=== PATIENT | male | born 1945 | race Caucasian/White ===

== ENCOUNTER 2018-08-10 01:48 | Emergency (ER) | payer MEDICARE, OTHER ==
[~2018-08-10] VITALS: Ht 170.2 cm; Wt 108.0 kg
--- NOTE | 2018-08-10 02:09 | ED Chest Pain ---
General Stated Complaint: DIZZYNESS Source: patient Exam Limitations: no limitations History of Present Illness Date Seen by Provider: Aug 10, 2018 Time Seen by Provider: 01:47 Initial Comments 72-year-old male presents after having awakened at approximately 10:00 pm, 4 hours ago, with dizziness. He states he had about 10-15 seconds of left-sided chest pain which was present transiently. He states that he drank a couple glasses of wine before dozing off then waking up extremely dizzy. He had no paresthesias or weakness bilaterally. No recent head injury. Denies any tinnitus or hearing loss. No vomiting or diarrhea reported. He believes that this could be related to some bad coleslaw he had eaten just prior to onset of symptoms and subsequently developed one episode of explosive diarrhea just prior to his symptom onset. He is somewhat nauseated but has not had any vomiting. Allergies and Home Medications Allergies Coded Allergies: shrimp (Verified Allergy, Unknown, 08/10/18) Uncoded Allergies: BEE STING (Allergy, Unknown, 08/10/18) Patient Home Medication List Home Medication List Reviewed: Yes Review of Systems Review of Systems Constitutional: no symptoms reported EENTM: No Symptoms Reported Respiratory: No Symptoms Reported Cardiovascular: See HPI Gastrointestinal: No Symptoms Reported Genitourinary: No Symptoms Reported Musculoskeletal: no symptoms reported Skin: no symptoms reported Psychiatric/Neurological: No Symptoms Reported Endocrine: No Symptoms Reported Hematologic/Lymphatic: No Symptoms Reported Past Pdbppts-Nfrtcm-Kvcwva Hx Past Med/Social Hx: Reviewed Nursing Past Med/Soc Hx Patient Social History Recent Foreign Travel: No Contact w/Someone Who Travel: No Physical Exam Vital Signs Vital Signs - First Documented 08/10/18 01:55 Temp 97.2 Pulse 72 Resp 13 B/P (MAP) 129/73 (91) Pulse Ox 97 O2 Delivery Room Air Capillary Refill : Height, Weight, BMI Height: '" Weight: lbs. oz. kg; BMI Method: General Appearance: WD/WN, Anxious, Obese HEENT: PERRL/EOMI, TMs Normal, Normal ENT Inspection, Pharynx Normal Neck: Full Range of Motion, Normal Inspection, Non Tender, Supple Respiratory: Chest Non Tender, Lungs Clear, Normal Breath Sounds, No Accessory Muscle Use, No Respiratory Distress Cardiovascular: Regular Rate, Rhythm, No Edema, No Gallop, No JVD, Systolic Murmur (grade 2/6) Gastrointestinal: Normal Bowel Sounds, No Organomegaly, Non Tender, Soft Extremity: Normal Capillary Refill, Normal Inspection, Normal Range of Motion, Non Tender, No Calf Tenderness Neurologic/Psychiatric: Alert, Oriented x3, No Motor/Sensory Deficits, Normal Mood/Affect, leadership recruiter II-XII Norm as Tested, Other (reflexes 2+/4+ symmetrically) Skin: Normal Color, Warm/Dry Lymphatic: No Adenopathy Progress/Results/Core Measures Results/Orders Lab Results Laboratory Tests Test 08/10/18 02:09 Range/Units White Blood Count 8.3 4.3-11.0 10^3/uL Red Blood Count 5.05 4.35-5.85 10^6/uL Hemoglobin 15.4 13.3-17.7 G/DL Hematocrit 46 40-54 % Mean Corpuscular Volume 92 80-99 FL Mean Corpuscular Hemoglobin 30 25-34 PG Mean Corpuscular Hemoglobin Concent 33 32-36 G/DL Red Cell Distribution Width 13.7 10.0-14.5 % Platelet Count 208 130-400 10^3/uL Mean Platelet Volume 10.1 7.4-10.4 FL Neutrophils (%) (Auto) 62 42-75 % Lymphocytes (%) (Auto) 29 12-44 % Monocytes (%) (Auto) 7 0-12 % Eosinophils (%) (Auto) 2 0-10 % Basophils (%) (Auto) 1 0-10 % Neutrophils # (Auto) 5.1 1.8-7.8 X 10^3 Lymphocytes # (Auto) 2.4 1.0-4.0 X 10^3 Monocytes # (Auto) 0.6 0.0-1.0 X 10^3 Eosinophils # (Auto) 0.1 0.0-0.3 10^3/uL Basophils # (Auto) 0.0 0.0-0.1 10^3/uL Prothrombin Time 13.1 12.2-14.7 SEC INR Comment 1.0 0.8-1.4 Activated Partial Thromboplast Time 26 24-35 SEC Sodium Level 140 135-145 MMOL/L Potassium Level 3.7 3.6-5.0 MMOL/L Chloride Level 98 98-107 MMOL/L Carbon Dioxide Level 28 21-32 MMOL/L Anion Gap 14 5-14 MMOL/L Blood Urea Nitrogen 19 H 7-18 MG/DL Creatinine 1.03 0.60-1.30 MG/DL Estimat Glomerular Filtration Rate > 60 BUN/Creatinine Ratio 18 Glucose Level 147 H 70-105 MG/DL Calcium Level 9.3 8.5-10.1 MG/DL Corrected Calcium 9.2 8.5-10.1 MG/DL Magnesium Level 1.8 1.8-2.4 MG/DL Total Bilirubin 0.4 0.1-1.0 MG/DL Aspartate Amino Transf (AST/SGOT) 21 5-34 U/L Alanine Aminotransferase (ALT/SGPT) 37 0-55 U/L Alkaline Phosphatase 39 L 40-136 U/L Troponin T 8 <=15 NG/L Total Protein 7.1 6.4-8.2 GM/DL Albumin 4.1 3.2-4.5 GM/DL Lipase 18 8-78 U/L Serum Alcohol 89 H <10 MG/DL My Orders Orders - ROBERTO RAMIREZ MD Cbc With Automated Diff (08/10/18 02:04) Magnesium (08/10/18 02:04) Chest 1 View Ap/Pa Only (08/10/18 02:04) Ekg Tracing (08/10/18 02:04) Comprehensive Metabolic Panel (08/10/18 02:04) Protime With Inr (08/10/18 02:04) Partial Thromboplastin Time (08/10/18 02:04) O2 (08/10/18 02:04) Monitor-Rhythm Ecg Trace Only (08/10/18 02:04) Lipid Panel (08/11/18 06:00) Saline Lock/Iv-Start (08/10/18 02:04) Lipase (08/10/18 02:04) Alcohol (08/10/18 02:04) Troponin T (08/10/18 02:04) Ct Head Wo (08/10/18 02:04) Aspirin Chewable Tablet (Baby Aspirin Ch (08/10/18 02:15) Ondansetron Injection (Zofran Injectio (08/10/18 02:45) Medications Given in ED Current Medications Medications Dose Ordered Sig/Steffany Route Start Time Stop Time Status Last Admin Dose Admin Aspirin 324 mg ONCE ONCE PO 08/10/18 02:15 08/10/18 02:16 UNV 08/10/18 02:34 324 MG Ondansetron HCl 4 mg ONCE ONCE IVP 08/10/18 02:45 08/10/18 02:46 UNV 08/10/18 02:47 4 MG Vital Signs/I&O 08/10/18 01:55 Temp 97.2 Pulse 72 Resp 13 B/P (MAP) 129/73 (91) Pulse Ox 97 O2 Delivery Room Air Progress Progress Note : Time: 02:12 Progress Note Dizziness and chest discomfort had abated just prior to arrival by EMS. Neurologic exam is unremarkable. He is alert and oriented. His EKG does not demonstrate any acute changes. Will do cardiac workup as well as CT 8 scan of his head. He'll be closely monitored and further evaluation and care given as needed. 0310 dizziness and nausea markedly improved after Zofran. He is convinced this is due to the 4-day-old coleslaw that he ate just prior to the onset of the symptoms. He states that he has had similar symptoms due to food poisoning in the past. We discussed his clinical findings and symptoms. I recommended admission to the hospital for observation however he is emphatic that he can go home. We set him up and stood him up without any symptoms at all. He remains neurologically intact. He understands and accepts the risk of discharge. He agrees to follow up with his PCP as soon as possible. Initial ECG Impression Date: Aug 10, 2018 Initial ECG Impression Time: 01:52 Initial ECG Rhythm: Normal Sinus Initial ECG Intervals: Normal Initial ECG Comparisson: No Previous ECG Available Comment RBBB, no acute changes Diagnostic Imaging Diagonstic Imaging: Xray, CT Plain Films/CT/US/NM/MRI: chest, head Comments CT head: Mild microvascular white matter disease. No acute findings. Dr. Silveira. CXR: No acute changes. JDO CP/AMI: Aspirin Departure Communication (Admissions) Family Conversation Discussed my recommendation for admitting. Both the patient and his prefer to be discharged and follow up with her PCP. They understand accept the risk associated with this. They also understand that they can return at any time should they change their mind. Impression Primary Impression: Vertigo Additional Impressions: Food poisoning Qualified Codes: T62.91XA - Toxic effect of unspecified noxious substance eaten as food, accidental (unintentional), initial encounter Heart murmur Alcohol intoxication Qualified Codes: F10.920 - Alcohol use, unspecified with intoxication, uncomplicated Disposition: 01 HOME, SELF-CARE Condition: Improved Departure-Patient Inst. Decision time for Depature: 03:15 Referrals: SELF,GIBSON LOPEZ Primary Care Physician 1-2 days Patient Instructions: Food Poisoning, Food Poisoning (DC), Heart Murmurs Scripts Meclizine HCl (Meclizine HCl) 25 Mg Tablet 25 MG PO TID PRN for DIZZINESS, #14 TAB Prov: ROBERTO RAMIREZ MD 08/10/18 ROBERTO RAMIREZ MD Aug 10, 2018 02:09
[2018-08-10] MEDS ORDERED: ASPIRIN 81 MG CHEW (CHILDREN'S ASA) PO ONE (02:15)
[2018-08-10] MEDS ORDERED: ASPIRIN 81 MG CHEW (CHILDREN'S ASA) ONE (02:31)
[2018-08-10 02:32] LABS: BASOPHILS % (AUTO) 1 % (0-10); EOSINOPHILS % (AUTO) 2 % (0-10); HEMATOCRIT 46 % (40-54); HEMOGLOBIN 15.4 G/DL (13.3-17.7); LYMPHOCYTES % (AUTO) 29 % (12-44); MEAN CORPUSCULAR HEMOGLOBIN 30 PG (25-34); MEAN CORPUSCULAR HGB CONC 33 G/DL (32-36); MEAN CORPUSCULAR VOLUME 92 FL (80-99); MEAN PLATELET VOLUME 10.1 FL (7.4-10.4); MONOCYTES % (AUTO) 7 % (0-12); NEUTROPHILS % (AUTO) 62 % (42-75); PLATELET COUNT 208 10^3/uL (130-400); RED CELL DISTRIBUTION WIDTH 13.7 % (10.0-14.5); WHITE BLOOD COUNT 8.3 10^3/uL (4.3-11.0)
[2018-08-10 02:33] LABS: EOSINOPHILS # (AUTO) 0.1 10^3/uL (0.0-0.3); LYMPHOCYTES # (AUTO) 2.4 X 10^3 (1.0-4.0); MONOCYTES # (AUTO) 0.6 X 10^3 (0.0-1.0); NEUTROPHILS # (AUTO) 5.1 X 10^3 (1.8-7.8)
[2018-08-10 02:44] LABS: PROTHROMBIN TIME PATIENT 13.1 SEC (12.2-14.7)
[2018-08-10] MEDS ORDERED: ONDANSETRON 4 MG/2 ML (SDV) Z0FRAN ONE (02:44)
[2018-08-10] MEDS ORDERED: ONDANSETRON 4 MG/2 ML (SDV) Z0FRAN IVP ONE (02:45)
[2018-08-10 02:53] LABS: CARBON DIOXIDE 28 MMOL/L (21-32); CHLORIDE 98 MMOL/L (98-107); POTASSIUM 3.7 MMOL/L (3.6-5.0); SODIUM 140 MMOL/L (135-145)
[2018-08-10 02:54] LABS: ALANINE AMINOTRANSFERASE 37 U/L (0-55); ALBUMIN 4.1 GM/DL (3.2-4.5); ALKALINE PHOSPHATASE 39 U/L (40-136); BILIRUBIN,TOTAL 0.4 MG/DL (0.1-1.0); BUN/CREATININE RATIO 18; CALCIUM 9.3 MG/DL (8.5-10.1); CREATININE SERUM 1.03 MG/DL (0.60-1.30); GFR ESTIMATED > 60; GLUCOSE 147 MG/DL (70-105); LIPASE 18 U/L (8-78); MAGNESIUM 1.8 MG/DL (1.8-2.4)
[2018-08-10 02:55] LABS: TOTAL PROTEIN 7.1 GM/DL (6.4-8.2)
[2018-08-10] MEDS ORDERED: MECL-106 PO (03:17)
[2018-08-10] MEDS ORDERED: RX-MECLIZINE HCL (ANTIVERT) 25 MG TAB #4 PPK PO ONE ×2 (03:19→03:30)
[2018-08-10 03:30] VITALS: BP 138/70
--- NOTE | 2018-08-10 06:18 | Diagnostic Imaging Report ---
PROCEDURE: CT head without contrast. TECHNIQUE: Multiple contiguous axial images were obtained through the brain without the use of intravenous contrast. Auto Exposure Controls were utilized during the CT exam to meet ALARA standards for radiation dose reduction. INDICATION: Severe dizziness starting earlier in the night. COMPARISON: None FINDINGS: There is mild diffuse atrophic changes with prominence of the ventricles and sulci. There are scattered areas of decreased attenuation, nonspecific but likely changes of chronic small vessel ischemic disease. There is otherwise normal pina-white differentiation. No abnormal areas of attenuation to suggest edema from ischemia. There is no midline shift or mass effect. No evidence for acute intracranial hemorrhage or abnormal extra-axial fluid collection. Bony calvarium is intact. Paranasal sinuses are clear. Mastoid air cells also appear clear. IMPRESSION: 1. No CT evidence for acute intracranial abnormality. Given symptoms, if further assessment is desired, MRI may be additional benefit. A preliminary report was provided by Pat. Dictated by: Dictated on workstation # [id number]
--- NOTE | 2018-08-10 06:21 | Diagnostic Imaging Report ---
INDICATION: Shortness of breath, dizziness. FINDINGS: Heart size is within normal limits. The lungs are clear. There is no effusion, pneumothorax or failure pattern. IMPRESSION: No acute appearing abnormality. Dictated by: Dictated on workstation # [id number]
== END 2018-08-10 03:30 | disposition home or self-care (01) ==
LOC: EDUNIT# 01:48 → ER FS 01:51
DX: T62.91XA Toxic effect of unspecified noxious substance eaten as food, accidental (unintentional), initial encounter (principal); F10.129 Alcohol abuse with intoxication, unspecified; R01.1 Cardiac murmur, unspecified; R42 Dizziness and giddiness
CPT/HCPCS: 36415; 70450; 71045; 80053; 80320; 83690; 83735; 84484; 85025; 85610; 85730; 93005; 93041; 96374

== ENCOUNTER → 2018-09-28 | Outpatient (CLI) | payer MEDICARE, OTHER ==
[~2018-09-28] MED LIST: CATHETER FLUSH 10 ML SYR IV PRN; HOLD METFORMIN - RECEIVED CONTRAST 20 ML VIAL IV SCH; IOHEXOL 350 MG/ML 100 ML (OMNIPAQUE 350) VIAL IV ONE; MECL-106 PO; NS 100 ML (IVPB) BAG IV ONE
[2018-09-28 09:50] LABS: BUN/CREATININE RATIO 27; CARBON DIOXIDE 30 MMOL/L (21-32); CHLORIDE 99 MMOL/L (98-107); GFR ESTIMATED > 60; POTASSIUM 4.3 MMOL/L (3.6-5.0); SODIUM 142 MMOL/L (135-145)
[2018-09-28 09:51] LABS: CALCIUM 9.3 MG/DL (8.5-10.1); GLUCOSE 131 MG/DL (70-105)
--- NOTE | 2018-09-28 12:01 | Diagnostic Imaging Report ---
INDICATION: Carotid arterial disease. TECHNIQUE: Axial imaging through the neck was performed after the administration of intravenous contrast and utilizing the CT angiography protocol. Multiplanar, 3-D, and MIP reformations were also performed. COMPARISON: No prior studies are available for comparison. FINDINGS: There is a three-vessel branching pattern to the aortic arch. Both common carotid arteries appear to be widely patent. Internal carotid arteries are poorly evaluated due to lack of optimal opacification of the internal carotid arterial system. This may be a timing issue, as there is dense contrast within the venous system. There is some calcified plaque at the carotid bifurcations bilaterally. No identifiable flow is identified in the proximal left internal carotid artery which contains heavy calcified plaque. The features are suspicious for internal carotid artery occlusion on the left side. The vertebral arteries demonstrate left vertebral artery to be dominant. Suboptimal opacification of the vertebral artery system is also noted. Basilar artery is patent. Limited intracranial images demonstrate flow within the bilateral middle cerebral and anterior cerebral as well as posterior cerebral arteries. IMPRESSION: Suboptimal study due to suboptimal opacification of the intra-or internal carotid arterial system. 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 Confirmation with ultrasound Doppler would be useful. The right internal carotid artery is limited in evaluation but no significant abnormality is seen. Dictated by: Dictated on workstation # [id number]
== END ==
LOC: LAB FS 09:12
PROVIDERS: ATTEND Nurse Practitioner Family
DX: I65.22 Occlusion and stenosis of left carotid artery (principal)
CPT/HCPCS: 36415; 70498; 80048

== ENCOUNTER → 2018-10-06 | Outpatient (CLI) | payer MEDICARE, OTHER ==
[~2018-10-06] VITALS: Ht 170.2 cm; Wt 110.7 kg
[~2018-10-06] MED LIST changes: -HOLD METFORMIN - RECEIVED CONTRAST 20 ML VIAL IV SCH; -IOHEXOL 350 MG/ML 100 ML (OMNIPAQUE 350) VIAL IV ONE; -NS 100 ML (IVPB) BAG IV ONE; +REGADENOSON 0.4 MG/5 ML SYR (LEXISCAN) IV ONE
--- NOTE | 2018-10-06 19:07 | STRESS TEST ---
DATE OF SERVICE: 10/06/2018 RESTING AND POST REGADENOSON TECHNETIUM-99M TETROFOSMIN SPECT CT IMAGING ORDERING PHYSICIAN: Dr. Francois. PRIMARY PHYSICIAN: Dr. Mantilla. CLINICAL DIAGNOSIS: Coronary artery disease. Baseline images were carried out after injection of 10.64 mCi of technetium-99m Tetrofosmin. This was followed by 0.4 mg of regadenoson and 30.9 mCi of technetium-99m Tetrofosmin for stress imaging. The electrocardiogram showed sinus rhythm with incomplete right bundle branch block. The electrocardiogram did not change significantly with the regadenoson infusion. There was nonspecific ST and T-wave abnormality, which did not change. The patient tolerated the procedure well. Review of images at rest and following stress does not indicate any distinct perfusion defects consistent with significant myocardial ischemia or infarction. Gated images show normal global left ventricular systolic function with normal regional wall motion. Left ventricular ejection fraction is calculated to be 62%. Left ventricular end diastolic volume is 64 mL. TID is absent (1.02). CONCLUSIONS: 1. No evidence of any significant myocardial ischemia or infarction on this study. 2. Normal regional wall motion. 3. Normal global left ventricular systolic function with a calculated ejection fraction of 62%. Job ID: [id number] DocumentID: [id number] Dictated Date: 10/06/2018 17:27:58 Converting Supervisor Date: 10/06/2018 19:06:19 Dictated By: ALEX FRANCOIS MD, MA, FACP, FACC,
== END ==
LOC: CARD 07:22
PROVIDERS: ATTEND Internal Medicine Cardiovascular Disease
DX: I25.10 Atherosclerotic heart disease of native coronary artery without angina pectoris (principal); R73.01 Impaired fasting glucose; I10 Essential (primary) hypertension; E78.5 Hyperlipidemia, unspecified; G47.33 Obstructive sleep apnea (adult) (pediatric); I45.10 Unspecified right bundle-branch block
CPT/HCPCS: 78452; 93017; 93306

== ENCOUNTER → 2021-05-14 | Outpatient (CLI) | payer MEDICARE, OTHER ==
[~2021-05-14] MED LIST changes: -CATHETER FLUSH 10 ML SYR IV PRN; -MECL-106 PO; +MECL-149 PO; -REGADENOSON 0.4 MG/5 ML SYR (LEXISCAN) IV ONE
--- NOTE | 2021-05-14 14:53 | Diagnostic Imaging Report ---
PROCEDURE: MRI lumbar spine. TECHNIQUE: Multiplanar, multisequence MRI of the lumbar spine was performed without contrast. DATE: May 14, 2021. COMPARISON: None. INDICATION: 75-year-old male, chronic low back pain. FINDINGS: There is grade 1 anterolisthesis of L4 on L5 measuring 4 mm. There is no evidence of a diffuse marrow infiltrating or replacing process. There is no identified compression deformity or fracture. The visualized cord and conus medullaris is unremarkable and terminates at the L1-L2 level. There is mild disc height loss at T12-L1 and L1-L2. There is severe disc height loss at L4-L5. There are multilevel Modic endplate degenerative related changes of the thoracolumbar spine. There is no identified focal concerning bone lesion. There is no visualized pars interarticularis defect. L1-L2: There is mild diffuse disc bulge. The facet joints and ligamentum flavum are unremarkable. There is mild right foraminal narrowing. There is prominence of the posterior epidural fat. There is no spinal canal stenosis. L2-L3: There is no disc bulge. The facet joints and ligamentum flavum are unremarkable. There is no foraminal narrowing. There is no spinal canal stenosis. L3-L4: There is no disc bulge. The facet joints and ligamentum flavum are unremarkable. There is no foraminal narrowing. There is no spinal canal stenosis. L4-L5: There is uncovering of the disc relating to the anterolisthesis as well as diffuse disc bulge. There is moderate to severe narrowing of the right lateral recess and moderate narrowing of the left lateral recess. There are bilateral facet degenerative changes without ligamentum flavum hypertrophy. There is severe right and moderate to severe left foraminal narrowing. There is no spinal canal stenosis. L5-S1: There is mild diffuse disc bulge. There are bilateral facet degenerative changes without ligamentum flavum hypertrophy. There is mild right foraminal narrowing. There is no spinal canal stenosis. IMPRESSION: 1. Multilevel disc and facet degenerative changes of the lumbar spine most notable at L4-L5. 2. Grade 1 anterolisthesis of L4 on L5 relating to facet arthropathy. 3. No identified compression deformity or fracture. Dictated by: Dictated on workstation # [id number]
== END ==
LOC: RAD 13:15
PROVIDERS: ATTEND Family Medicine
DX: M47.26 Other spondylosis with radiculopathy, lumbar region (principal); M51.16 Intervertebral disc disorders with radiculopathy, lumbar region; M43.16 Spondylolisthesis, lumbar region
CPT/HCPCS: 72148

== ENCOUNTER → 2021-06-12 | Outpatient (CLI) | payer MEDICARE, OTHER ==
[~2021-06-12] MED LIST changes: +REGADENOSON 0.4 MG/5 ML SYR (LEXISCAN) IV ONE
[2021-06-12] MEDS: CATHETER FLUSH 10 ML SYR IV PRN ×2 (11:25→13:03)
[2021-06-12 12:51] VITALS: BP 181/88
--- NOTE | 2021-06-14 13:24 | STRESS TEST ---
DATE OF SERVICE: 06/12/2021 RESTING AND POST REGADENOSON TECHNETIUM-99M TETROFOSMIN SPECT CT IMAGING Baseline images were carried out after injection of 10.17 mCi of technetium-99m Tetrofosmin. This was followed by 0.4 mg regadenoson and 30.7 mCi of technetium-99m Tetrofosmin for stress imaging. The electrocardiogram showed sinus rhythm with right bundle branch block at baseline. It did not change significantly with the regadenoson infusion. The patient tolerated the procedure well. Review of images at rest and following stress indicates an inferoseptal perfusion defect, which appears transient. Gated images show normal global left ventricular systolic function with normal regional wall motion. Left ventricular ejection fraction is calculated to be 74%. Left ventricular end-diastolic volume is 43 mL. TID is absent (1.06%) SDS is 5. CONCLUSIONS: 1. This study is indicative of a moderate amount of inferoseptal ischemia. 2. Normal regional wall motion. 3. Normal global left ventricular systolic function with an ejection fraction 76%. Job ID: [id number] DocumentID: [id number] Dictated Date: 06/14/2021 12:04:25 Radiology Manager Date: 06/14/2021 13:22:46 Dictated By: ALEX SANON MD, MA, FACP, FACC,
== END ==
LOC: CARD 11:30
PROVIDERS: ATTEND Internal Medicine Cardiovascular Disease
DX: I25.10 Atherosclerotic heart disease of native coronary artery without angina pectoris (principal)
CPT/HCPCS: 78452; 93017; A9502

== ENCOUNTER 2021-06-19 11:00 | Day surgery (SDC) | payer MEDICARE, OTHER ==
[2021-06-19] VITALS (9 sets, daily range): BP systolic 109–190; BP diastolic 56–102
[~2021-06-19] VITALS: Ht 170 cm; Wt 106.0 kg
[2021-06-19 09:54] LABS: HEMATOCRIT 50 % (40-54); HEMOGLOBIN 17.1 g/dL (13.3-17.7); MEAN CORPUSCULAR HEMOGLOBIN 30 pg (25-34); MEAN CORPUSCULAR HGB CONC 34 g/dL (32-36); MEAN CORPUSCULAR VOLUME 89 fL (80-99); MEAN PLATELET VOLUME 9.6 fL (9.0-12.2); PLATELET COUNT 256 10^3/uL (130-400)
[2021-06-19 10:03] LABS: ALBUMIN 4.4 GM/DL (3.2-4.5); POTASSIUM 3.6 MMOL/L (3.6-5.0)
[2021-06-19 10:04] LABS: CALCIUM 9.7 MG/DL (8.5-10.1)
[2021-06-19 10:05] LABS: TOTAL PROTEIN 7.9 GM/DL (6.4-8.2)
[2021-06-19 10:09] LABS: CREATININE SERUM 0.91 MG/DL (0.60-1.30)
[2021-06-19 10:11] LABS: PROTHROMBIN TIME PATIENT 13.4 SEC (12.2-14.7)
[~2021-06-19 11:00] MED LIST changes: +AGELESS MALE PO; +ASPI-1238 PO; +ATEN50TA PO; +CA C1TAB78 PO; +CHOL-34 PO; +CYAN-41 PO; +HEParin (CATH LAB) 2,000 ML IV ONE; +HYDR25TA4 PO; +LIDOCAINE 1% INJ 20 ML VIAL ONE; +LOSA100T57 PO; +MIDAZOLAM 5 MG/5 ML (VERSED) VIAL ONE; +MV,M1TAB4 PO; +NS IV 1000 ML 1,000 ML IV SCH; +NS IV 1000 ML 1,000 ML ONE; +OMEG-160 PO; +OMEP20TA7 PO; -REGADENOSON 0.4 MG/5 ML SYR (LEXISCAN) IV ONE; +SAW/1TAB2 PO; +diphenhydrAMINE 50 MG/ML INJ (BENADRYL) ONE; +fentaNYL INJ 100 MCG/2 ML AMP ONE
--- NOTE | 2021-06-19 11:17 | Cardiac Procedure Note-CS/ASA ---
Pre-Procedure Note Pre-Op Procedure Note H&P Reviewed The H&P was reviewed, patient examined and no changes noted. Date H&P Reviewed: Jun 19, 2021 Time H&P Reviewed: 11:17 Conscious Sedation Pre-Proced Time 11:17 ASA Score 3 For ASA 3 and 4: Consider anesthesia and medical clearance. Also, for patients with a history of failed moderate sedation consider anesthesia. Airway Lungs Heart ASA score ASA 1: a normal healthy patient ASA 2: a patient with a mild systemic disease (mid diabetes, controlled hypertension, obesity ASA 3: a patient with a severe systemic disease that limits activity (angina, COPD, prior Myocardial infarction) ASA 4: a patient with an incapacitating disease that is a constant threat to life (CHF, renal failure) ASA 5: a moribund patient not expected to survive 24 hrs. (ruptured aneurysm) ASA 6: a declared brain- patient whose organs are being harvested. For emergent operations, add the letter E after the classification Mallampati Classification Grade 2 Sedation Plan Analgesia, Amnesia, Plan communicated to team members, Discussed options with patient/fam, Discussed risks with patient/fam The patient is an appropriate candidate to undergo the planned procedure, sedation, and anesthesia. The patient immediately re-assessed prior to indication. ALEX SANON MD FACP FAC CCDS Jun 19, 2021 11:17
[2021-06-19] MEDS ORDERED: HEParin 1000 UNIT/ML (10ML VIAL) FOR BOLUS ONE (13:15)
[2021-06-19] MEDS ORDERED: EPTIFIBATIDE BOLUS 20 ML IV ONE (13:15)
[2021-06-19] MEDS ORDERED: NITRO DRIP 25000 MCG/D5W 0 ML IV ONE (13:18)
[2021-06-19] MEDS ORDERED: CLOPIDOGREL 300 MG (PLAVIX) TABLET PO ONE (13:38)
[2021-06-19] MEDS ORDERED: ASPIRIN 81 MG CHEW (CHILDREN'S ASA) ONE (13:38)
[2021-06-19] MEDS ORDERED: PATIENT MAY USE OWN MEDS, ALL PO SCH (13:45)
[2021-06-19] MEDS ORDERED: NS IV 1000 ML 1,000 ML IV SCH (13:45)
[2021-06-19] MEDS ORDERED: ACETAMINOPHEN 325 MG TABLET PO PRN (13:45)
[2021-06-19] MEDS ORDERED: NS IV 1000 ML 1,000 ML ONE (13:53)
--- NOTE | 2021-06-19 14:38 | CARDIAC CATHETERIZATION ---
DATE OF SERVICE: 06/19/2021 CARDIAC CATHETERIZATION AND CORONARY INTERVENTION REPORT INDICATION FOR PROCEDURE: The patient is a 75-year-old gentleman with a history of coronary artery disease, who had a myocardial perfusion imaging study done recently, which showed considerable inferoseptal ischemia. Cardiac catheterization was recommended. Informed consent was obtained for cardiac catheterization and possible ad hoc coronary intervention. DESCRIPTION OF PROCEDURE: He was brought to the cardiac catheterization laboratory in a fasting state. Right groin was prepared and draped in the usual sterile fashion. Lidocaine 1% was used for local anesthesia. Modified Seldinger technique was used to advance a 5-Swiss sheath in the right femoral artery, 5-Swiss JL4 catheter was used for left coronary angiography, 5-Swiss JR4 catheter was used for right coronary angiography, 5-Swiss pigtail catheter was used for left heart catheterization and left ventricular angiography. Subsequently, percutaneous intervention was carried out to the right coronary artery and it is described below. PERCUTANEOUS INTERVENTION TO THE RIGHT CORONARY: We exchanged the sheath over a wire for a 6-Swiss sheath. We used a 6-Swiss JR4 guide catheter with side holes to engage the right coronary artery. We advanced a BMW wire across the lesion in the mid right coronary artery and placed in the distal vessel. We advanced a Xience Cecilia 2.5 x 12 mm stent to the lesion. It was deployed at 16 atmospheres achieving a final stent lumen size of approximately 2.8 mm. The patient tolerated the procedure well. This stenting reduced the stenosis to 0% residual and flow throughout the vessel was normal. Angioplasty equipment was removed. Angiography of the right femoral artery was carried out through the sheath. Mynx was used to achieve hemostasis. HEMODYNAMICS: Left ventricular end-diastolic pressure following coronary angiography was 18 mmHg. There is no significant pressure gradient on pullback across the aortic valve. CORONARY ANGIOGRAPHY: Diffuse coronary calcification is seen. Left main coronary artery does not exhibit significant obstructive disease. Left anterior descending artery has diffuse moderate disease. There is approximately 60% mid vessel stenosis and another 60% distal stenosis. The left circumflex artery has diffuse mild to moderate disease. The right coronary artery is dominant and had 75% mid vessel stenosis. The whole vessel has diffuse mild to moderate plaque as well. Because there was ischemia in the territory of the right coronary artery and because there was a 75% stenosis in the mid right coronary artery, we stented the lesion with Xience Cecilia 2.5 x 12 mm stent that reduced the stenosis to 0% residual. CONCLUSIONS: 1. Coronary artery disease includes 60% stenosis in the mid and distal left anterior descending and 75% stenosis in the mid right coronary. The mid right coronary artery was the culprit lesion (inferoseptal ischemia on myocardial perfusion imaging). This lesion was stented with Xience Cecilia 2.5 x 12 mm stent. The rest of the coronary vessels have diffuse mild to moderate disease. 2. Normal global left ventricular systolic function with an ejection fraction approximately 60%. 3. Elevated left ventricular end-diastolic pressure. DISCUSSION AND RECOMMENDATIONS: Dual antiplatelet therapy has been initiated. Beta anthony and statin therapy will be given as tolerated. Risk factor modification has been reviewed. Job ID: [id number] DocumentID: [id number] Dictated Date: 06/19/2021 13:43:49 Tile And Marble Setter Date: 06/19/2021 14:37:19 Dictated By: ALEX SANON MD, MA, FACP, FACC,
[2021-06-19] MEDS ORDERED: [UNRECOGNIZED DRUG - OTHER] PO SCH (21:00)
[2021-06-19] MEDS ORDERED: VITAMIN D3 25 MCG (1,000 UNITS) TABLET PO SCH (21:00)
[2021-06-19] MEDS ORDERED: NON-FORMULARY MEDICATION 1 EA EA (Omega-3/Dha/Epa/Fish Oil (Fish Oil 1,000 mg Softgel) 1 E PO SCH (21:00)
[2021-06-19] MEDS ORDERED: GINKGO PO SCH (21:00)
[2021-06-19] MEDS ORDERED: CYANOCOBALAMIN 1,000 MCG (VITAMIN B-12) TABLET PO SCH (21:00)
[2021-06-19] MEDS ORDERED: LYCOPENE PO SCH (21:00)
[2021-06-19] MEDS ORDERED: MV MINERALS PO SCH (21:00)
[2021-06-19] MEDS ORDERED: OMEGA 3 (FISH OIL) 1000 MG CAP PO SCH (21:00)
[2021-06-20 08:00] VITALS: BP 158/79
--- NOTE | 2021-06-20 08:04 | Progress Note - Cardiology ---
Cardiology SOAP Progress Note Subjective: Lying in bed No c/o CP, SOB, palpitations, syncope or near syncope No c/o right groin discomfort Objective: I&O/Vital Signs Weight (Pounds): 244 Weight (Ounces): 0.0 Weight (Calculated Kilograms): 110.893188 Side: right Groin site without hematoma: Yes Condition: DP/PT pulses palpable, extremity w/d/p Bruising: mild bruising Constitutional: AAO x 3 Respiratory: chest expansion is symmetric, chest is bilaterally symmetric, lungs clear to auscultation Cardiovascular: regular rate-rhythm; No JVD; S1 and S2 Gastrointestional: No tender; soft, round, audible bowel sounds Extremities: no lower extremity edema bilateral Neurologic/Psychiatric: grossly intact (moves all extremities) Skin: No rash on exposed areas, No ulcerations on exposed areas Results/Procedures: Labs Microbiology 06/19/21 MRSA Screen - Final, Complete MRSA not isolated Procedures S/P cardiac cath. Please refer to Dr. Francois's cardiac cath report of 06-19-21 for details. A/P: Assessment: CAD - Cardiac cath of 06-19-21: Coronary artery disease includes 60% stenosis in the mid and distal left anterior descending and 75% stenosis in the mid right coronary. The mid right coronary artery was the culprit lesion (inferoseptal ischemia on myocardial perfusion imaging). This lesion was stented with Xience Cecilia 2.5 x 12 mm stent. The rest of the coronary vessels have diffuse mild to moderate disease. Normal global left ventricular systolic function with an ejection fraction approximately 60%. Elevated left ventricular end-diastolic pressure - Echocardiogram of September 2018 showed concentric LVH. LVEF 60-65%. Grade 1 diastolic dysfunction. Mid Ao regug. RVSP approx 20 mmHg. Mild TR. Carotid dz - Carotid u/s of September 2018 and Mar 2019 showed L ICA occlusion. Mild carotid dz on the right. 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 - Carotid w/s of 05/31/21: L ICA occlusion, less than 40% R ICA stenosis IFG vs borderline DM II Hyperlipidemia - Reported intolerant to statins (feel that caused hyperglycemia/DM II and also cause him to have marked fatigue) - currently taking Repatha - followed by his PCP, Dr. Self Obesity - BMI 40 Obesity-hypoventilation/RACHEL - Intolerant to CPAP Abnormal ECG. - ECG of 08/10/18 showed NSR with RBBB H/O tobaccoism - Quit smoking in or around 1974 Fam h/o early CAD: - brother had [place] at age 50 Plan: S/P cardiac cath with successful coronary intervention Ok to discharge home today Continue DAPT, BB Out pt f/u in 2 weeks JUDITH CAMPUZANO Jun 20, 2021 08:04
[2021-06-20] MEDS ORDERED: ASPI81TA64 PO (08:06)
[2021-06-20] MEDS ORDERED: CLOP75TA28 PO (08:06)
[2021-06-20] MEDS ORDERED: PANT20TA18 PO (08:06)
--- NOTE | 2021-06-20 08:07 | Discharge Inst-Cardiology ---
Discharge Inst-Cardiac Discharge Medications New Medications: Aspirin (Children's Aspirin) 81 Mg Tab.chew 81 MG PO DAILY, #90 TAB 3 Refills Clopidogrel Bisulfate (Clopidogrel) 75 Mg Tablet 75 MG PO DAILY, #90 TAB 3 Refills Pantoprazole Sodium (Pantoprazole Sodium) 20 Mg Tablet.dr 20 MG PO DAILY, #90 TAB 3 Refills Continued Medications: [Ageless Male] () 1 EACH PO HS Atenolol (Atenolol) 50 Mg Tablet 50 MG PO DAILY, TAB Ca Carb & Gluc/Mag Ox & Gluc (Calcium Magnesium Caplet) 1 Each Tablet 1 EACH PO HS, TAB Cholecalciferol (Vitamin D3) (Vitamin D3) 25 Mcg Tablet 25 MCG PO HS, TAB Cyanocobalamin (Vitamin B-12) (Vitamin B-12) 1,000 Mcg Tablet 1000 MCG PO HS, TAB Hydrochlorothiazide (Hydrochlorothiazide) 25 Mg Tablet 25 MG PO DAILY, TAB Losartan Potassium (Losartan Potassium) 100 Mg Tablet 100 MG PO DAILY, TAB Mv,Minerals/FA/Lycopene/Ginkgo (One Daily Men's 50+ Tablet) 1 Each Tablet 1 EACH PO HS, TAB [place]-3/Dha/Epa/Fish Oil (Fish Oil 1,000 mg Softgel) 1 Each Capsule 1 EACH PO HS, CAP Saw/Vit E/Sod Nohemi/Lyc/Beta/Pyg (Prostate Health Caplet) 1 Each Tablet 1 EACH PO HS, TAB Discontinued Medications: Aspirin (Aspirin EC) 81 Mg Tablet. 81 MG PO DAILY, TAB Omeprazole (Omeprazole) 20 Mg Tablet. 20 MG PO DAILY, TAB New, Converted or Re-Newed RX: Transmitted to Pharmacy Patient Instructions Patient Instructions: Please schedule follow up appointment to see Dr Francois in 2 weeks JUDITH CAMPUZANO Jun 20, 2021 08:07
[2021-06-20 08:16] VITALS: BP 158/79
[2021-06-20] MEDS ORDERED: PANTOPRAZOLE 20 MG TABLET (PROTONIX) PO SCH (09:00)
[2021-06-20] MEDS ORDERED: LOSARTAN 100 MG (COZAAR) TABLET PO SCH (09:00)
[2021-06-20] MEDS ORDERED: CLOPIDOGREL 75 MG (PLAVIX) TABLET PO SCH (09:00)
[2021-06-20] MEDS ORDERED: ATENOLOL 50 MG (TENORMIN) TAB PO SCH (09:00)
[2021-06-20] MEDS ORDERED: ASPIRIN 81 MG CHEW (CHILDREN'S ASA) PO SCH (09:00)
--- NOTE | 2021-06-20 12:10 | Progress Note - Cardiology ---
Cardiology SOAP Progress Note Subjective: No leg or groin discomfort No cp or palp or syncope or shortness of breath No n/v/d Objective: I&O/Vital Signs 06/20/21 06/20/21 06/20/21 06/20/21 01:00 04:00 06:46 07:00 Temp 36.7 Pulse 60 56 O2 Delivery Room Air O2 Flow Rate 0.00 06/20/21 06/20/21 06/20/21 08:00 08:16 09:00 Temp 36.5 Pulse 58 57 Resp 18 B/P (MAP) 158/79 (105) 158/79 (105) Pulse Ox 94 96 O2 Delivery Room Air Room Air Room Air 06/20/21 00:00 Intake Total 1600 ml Output Total 300 ml Balance 1300 ml Weight (Pounds): 244 Weight (Ounces): 0.0 Weight (Calculated Kilograms): 110.941670 Side: right Groin site without hematoma: Yes Condition: DP/PT pulses palpable, extremity w/d/p Bruising: moderated bruising Constitutional: AAO x 3, well-developed, well-nourished Respiratory: chest expansion is symmetric, chest is bilaterally symmetric, lungs clear to auscultation Cardiovascular: regular rate-rhythm; No JVD; S1 and S2 Gastrointestional: No tender; soft, round, audible bowel sounds Extremities: no lower extremity edema bilateral Neurologic/Psychiatric: grossly intact (moves all extremities) Skin: No rash on exposed areas, No ulcerations on exposed areas Results/Procedures: Labs Microbiology 06/19/21 MRSA Screen - Final, Complete MRSA not isolated A/P: Assessment: CAD - Cardiac cath of 06-19-21: Coronary artery disease includes 60% stenosis in the mid and distal left anterior descending and 75% stenosis in the mid right coronary. The mid right coronary artery was the culprit lesion (inferoseptal ischemia on myocardial perfusion imaging). This lesion was stented with Xience Cecilia 2.5 x 12 mm stent. The rest of the coronary vessels have diffuse mild to moderate disease. Normal global left ventricular systolic function with an ejection fraction approximately 60%. Elevated left ventricular end-diastolic pressure - Echocardiogram of September 2018 showed concentric LVH. LVEF 60-65%. Grade 1 diastolic dysfunction. Mid Ao regug. RVSP approx 20 mmHg. Mild TR. Carotid dz - Carotid u/s of September 2018 and Mar 2019 showed L ICA occlusion. Mild carotid dz on the right. 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 - Carotid w/s of 05/31/21: L ICA occlusion, less than 40% R ICA stenosis IFG vs borderline DM II Hyperlipidemia - Reported intolerant to statins (feel that caused hyperglycemia/DM II and also cause him to have marked fatigue) - currently taking Repatha - followed by his PCP, Dr. Mantilla Obesity - BMI 40 Obesity-hypoventilation/RACHEL - Intolerant to CPAP Abnormal ECG. - ECG of 08/10/18 showed NSR with RBBB H/O tobaccoism - Quit smoking in or around 1974 Fam h/o early CAD: - brother had [place] at age 50 Plan: I had a long and detailed discussion with him and his family regarding his CV issues, cath finding, interventions undertaken, treatment plan, risk factor modification, importance of compliance, and outpt f/u. Questions answered in detail Continue DAPT, BB, Repatha Outpt f/u in 2 weeks ALEX SANON MD FACP FACC CCDS Jun 20, 2021 12:10
== END 2021-06-20 10:20 | disposition home or self-care (01) ==
LOC: CATH 11:00 → CSD 14:59 → CATH 06-20 10:20
PROVIDERS: ATTEND Internal Medicine Cardiovascular Disease
DX: I25.10 Atherosclerotic heart disease of native coronary artery without angina pectoris (principal); I65.23 Occlusion and stenosis of bilateral carotid arteries; I35.1 Nonrheumatic aortic (valve) insufficiency; E78.2 Mixed hyperlipidemia; I11.9 Hypertensive heart disease without heart failure; E66.9 Obesity, unspecified; G47.36 Sleep related hypoventilation in conditions classified elsewhere; Z68.36 Body mass index [BMI] 36.0-36.9, adult; Z87.891 Personal history of nicotine dependence; Z79.899 Other long term (current) drug therapy
CPT/HCPCS: 80053; 80061; 85027; 85610; 85730; 87081; 93458; C1760; C1769; C1874; C1887; C1894 ×2; C9600; 36415

== ENCOUNTER → 2023-02-12 | Outpatient (CLI) | payer MEDICARE, OTHER ==
[~2023-02-12] MED LIST changes: +ASPI81TA64 PO; +CLOP75TA28 PO; -HEParin (CATH LAB) 2,000 ML IV ONE; -LIDOCAINE 1% INJ 20 ML VIAL ONE; -LOSA100T57 PO; +LOSA100T58 PO; -MECL-149 PO; +MECL-291 PO; -MIDAZOLAM 5 MG/5 ML (VERSED) VIAL ONE; -NS IV 1000 ML 1,000 ML IV SCH; -NS IV 1000 ML 1,000 ML ONE; +OMEP20TA56 PO; -OMEP20TA7 PO; +PANT20TA18 PO; -diphenhydrAMINE 50 MG/ML INJ (BENADRYL) ONE; -fentaNYL INJ 100 MCG/2 ML AMP ONE
== END ==
LOC: CANPRECLI → CARD 12:47
PROVIDERS: ATTEND Nurse Practitioner Family
DX: I35.1 Nonrheumatic aortic (valve) insufficiency (principal)
CPT/HCPCS: 93320